=== PATIENT | female | born 1950 | race Caucasian/White ===

== ENCOUNTER 2016-09-08 05:31 | Outpatient (CLI) | payer MEDICARE ==
[~2016-09-08] VITALS: Ht 157.5 cm; Wt 65.8 kg
[2016-09-08] MEDS ORDERED: ATOR20TA66 PO (10:51)
[2016-09-08] MEDS ORDERED: OMEG-160 PO (10:51)
[2016-09-08] MEDS ORDERED: ESTR1TAB24 PO (10:51)
[2016-09-08] MEDS ORDERED: UBID100C44 PO (10:51)
[2016-09-08] MEDS ORDERED: ASPI-586 PO (10:51)
[2016-09-10] MEDS ORDERED: HYDR-3812 PO (14:33)
== END 2016-09-08 10:58 ==
LOC: PREOP 05:31
PROVIDERS: ATTEND Surgery
DX: Z01.818 Encounter for other preprocedural examination (principal); N63 Unspecified lump in breast

== ENCOUNTER 2016-09-10 11:42 | Day surgery (SDC) | payer MEDICARE, OTHER ==
[~2016-09-10 11:42] MED LIST: ASPI-586 PO; ATOR20TA66 PO; ESTR1TAB24 PO; OMEG-160 PO; UBID100C44 PO
[2016-09-10] MEDS ORDERED: ceFAZolin 1,000 MG (ANCEF) VIAL ONE (12:27)
[2016-09-10] MEDS ORDERED: NS (IVPB) 50 ML ONE (12:27)
[2016-09-10] MEDS ORDERED: LACTATED RINGERS 1,000 ML IV PRN (12:55)
[2016-09-10] MEDS ORDERED: ceFAZolin 1 GM/NS 50 ML IVPB IV ONE ×2 (13:00)
[2016-09-10] MEDS ORDERED: BUP/EPI 0.25% 1:200,000 (MARCAINE) 10 ML VIAL IJ ONE (13:36)
[2016-09-10] MEDS ORDERED: fentaNYL INJECTION 100 MCG/2 ML AMP ONE (13:51)
[2016-09-10] MEDS ORDERED: MIDAZOLAM 2 MG/2 ML (VERSED) VIAL ONE (13:51)
[2016-09-10] MEDS ORDERED: proPOfol 200 MG/20 ML (DIPRIVAN) VIAL IV ONE (13:51)
[2016-09-10] MEDS ORDERED: SEVOFLURANE (ULTANE) 15 ML INHAL SOLN ONE ×3 (14:21→14:35)
[2016-09-10] MEDS ORDERED: ONDANSETRON 4 MG/2 ML (SDV) Z0FRAN ONE (14:21)
[2016-09-10] MEDS ORDERED: GLYCOPYRROLATE 0.2 MG/ML (ROBINUL) 2 ML VIAL ONE (14:24)
[2016-09-10] MEDS ORDERED: HYDR-3812 PO (14:33)
[2016-09-10] MEDS: morphine INJ 10 MG/ML 1ML (SYR OR VIAL) IVP PRN ×2 (15:00→15:10)
[2016-09-10] MEDS ORDERED: ONDANSETRON 4 MG/2 ML (SDV) Z0FRAN IVP PRN (15:00)
== END 2016-09-10 16:43 | disposition home or self-care (01) ==
DX: D24.2 Benign neoplasm of left breast (principal); Z11.2 Encounter for screening for other bacterial diseases; E78.5 Hyperlipidemia, unspecified; Z79.899 Other long term (current) drug therapy; Z79.82 Long term (current) use of aspirin

== ENCOUNTER → 2016-10-17 | Outpatient (CLI) | payer MEDICARE, OTHER ==
[~2016-10-17] MED LIST changes: +GADOBUTROL 7.5 MMOL/7.5 ML (GADAVIST) VIAL IV ONE; +HYDR-3812 PO
[2016-10-17 09:52] LABS: BLOOD UREA NITROGEN 8 MG/DL (7-18); BUN/CREATININE RATIO 11; CREATININE SERUM 0.71 MG/DL (0.60-1.30); GFR ESTIMATED > 60
== END ==
LOC: RAD 09:08
PROVIDERS: ATTEND Surgery
DX: R92.2 Inconclusive mammogram (principal)
CPT/HCPCS: 36415; 77059; 82565; 84520

== ENCOUNTER → 2019-04-04 | Outpatient (CLI) | payer MEDICARE, OTHER ==
[~2019-04-04] VITALS: Ht 157 cm; Wt 66.0 kg
[~2019-04-04] MED LIST changes: +ACHD5005 PO; +CATHETER FLUSH 10 ML SYR IV PRN; -GADOBUTROL 7.5 MMOL/7.5 ML (GADAVIST) VIAL IV ONE; -HYDR-3812 PO
[2019-04-04 09:23] VITALS: BP 194/83
--- NOTE | 2019-04-04 17:11 | STRESS TEST ---
DATE OF SERVICE: 04/04/2019 EXERCISE MYOVIEW STRESS TEST REFERRING PHYSICIAN: Moreno Del Toro MD and Reno Garcia DO Baseline heart rate is 59, baseline blood pressure 133/76. Baseline EKG is sinus rhythm with no ischemic changes. In summary, the patient was injected with 10.1 mCi of technetium-99 Myoview and the resting images were obtained. Then, the patient started exercising with a baseline heart rate, blood pressure and EKG mentioned above. The patient was able to exercise for a total of 4 minutes 15 seconds on standard Arvin protocol. With peak exercise level, blood pressure was 194/83. EKG was showing nondiagnostic changes. During recovery, heart rate and blood pressure returned to baseline. EKG returned to baseline. The resting and stress images were reviewed and compared in the short axis, horizontal long axis, and vertical long axis views. Review of the images showed breast attenuation with mild decreased uptake involving the mid to apical anterior wall and anterolateral wall. SSS is 6, SDS 4, TID value 1.02. On the gated images, the left ventricle appeared to be normal size with normal contractility. Calculated ejection fraction 70%. CONCLUSION: 1. Fair exercise tolerance, a total of 4 minutes 15 seconds on standard Arvin protocol, total of 6 METs achieving 95% of maximum expected heart rate. 2. Nondiagnostic EKG changes with exercise with [address] depression in II, III, aVF, V4, V5 and V3, returned to baseline during recovery. 3. Hypertensive response to exercise with peak blood pressure 194/83 returned to baseline during recovery. 4. Breast attenuation with mild ischemia involving the mid to apical anterior wall and anterolateral wall. 5. Normal left ventricular size with normal contractility. Calculated ejection fraction 70%. Job ID: [id number] DocumentID: [id number] Dictated Date: 04/04/2019 12:37:51 [employer] Date: 04/04/2019 17:10:39 Dictated By: DAVID GREENFIELD MD
== END ==
LOC: CARD 07:25
PROVIDERS: ATTEND Physician Assistant
DX: I08.1 Rheumatic disorders of both mitral and tricuspid valves (principal); I65.29 Occlusion and stenosis of unspecified carotid artery; E78.5 Hyperlipidemia, unspecified; Z82.49 Family history of ischemic heart disease and other diseases of the circulatory system
CPT/HCPCS: 78452; 93017; 93306

== ENCOUNTER 2019-04-06 07:39 | Day surgery (SDC) | payer MEDICARE, OTHER ==
[~2019-04-06] VITALS: Ht 155 cm; Wt 67.0 kg
[2019-04-06] VITALS (11 sets, daily range): BP systolic 148–167; BP diastolic 77–95
[~2019-04-06 07:39] MED LIST changes: -CATHETER FLUSH 10 ML SYR IV PRN
[2019-04-06] MEDS ORDERED: HEParin 1000 UNIT/ML (10ML VIAL) FOR BOLUS ONE (07:41)
[2019-04-06] MEDS ORDERED: NS IV 1000 ML 3,000 ML ONE (07:41)
[2019-04-06] MEDS ORDERED: LIDOCAINE 1% INJ 20 ML 20 ML VIAL ONE (07:41)
[2019-04-06] MEDS ORDERED: NS IV 1000 ML 1,000 ML IV SCH ×2 (07:45→10:30)
[2019-04-06 08:07] LABS: HEMOGLOBIN 13.6 G/DL (11.5-16.0); MEAN PLATELET VOLUME 9.6 FL (7.4-10.4); RED CELL DISTRIBUTION WIDTH 13.7 % (10.0-14.5); WHITE BLOOD COUNT 6.7 10^3/uL (4.3-11.0)
[2019-04-06 08:08] LABS: BILIRUBIN,URINE NEGATIVE (NEGATIVE); CLARITY,URINE CLEAR; COLOR,URINE YELLOW; GLUCOSE, URINE (UA) NEGATIVE (NEGATIVE); KETONES,URINE NEGATIVE (NEGATIVE); LEUKOCYTE ESTERASE ,URINE NEGATIVE (NEGATIVE); NITRITE,URINE NEGATIVE (NEGATIVE); PROTEIN,URINE NEGATIVE (NEGATIVE)
[2019-04-06 08:17] LABS: BACTERIA,URINE MODERATE /HPF; RBC,URINE 0-2 /HPF; WBC,URINE RARE /HPF
[2019-04-06 08:24] LABS: PROTHROMBIN TIME PATIENT 13.3 SEC (12.2-14.7)
[2019-04-06 08:29] LABS: ALANINE AMINOTRANSFERASE 13 U/L (0-55); ALBUMIN 4.2 GM/DL (3.2-4.5); ALKALINE PHOSPHATASE 118 U/L (40-136); BILIRUBIN,TOTAL 0.6 MG/DL (0.1-1.0); BUN/CREATININE RATIO 16; CALCIUM 9.6 MG/DL (8.5-10.1); CARBON DIOXIDE 26 MMOL/L (21-32); CHLORIDE 105 MMOL/L (98-107); CHOLESTEROL 204 MG/DL (< 200); GFR ESTIMATED > 60; GLUCOSE 87 MG/DL (70-105); HDL CHOLESTEROL 71 MG/DL (40-60); POTASSIUM 3.6 MMOL/L (3.6-5.0); SODIUM 140 MMOL/L (135-145); TOTAL PROTEIN 7.6 GM/DL (6.4-8.2); TRIGLYCERIDES 113 MG/DL (<150); VLDL CHOLESTEROL 23 MG/DL (5-40)
--- NOTE | 2019-04-06 08:31 | Diagnostic Imaging Report ---
INDICATION: Coronary artery disease. TECHNIQUE: A PA chest was obtained at 8:16 AM. FINDINGS: The heart and mediastinal silhouette are normal in appearance. The lungs are clear. There is no pneumothorax or pleural fluid. There are surgical clips over the right upper chest. IMPRESSION: No acute process in the chest. Dictated by: Dictated on workstation # [id number]
--- NOTE | 2019-04-06 09:19 | NUR ---
SPOKE WITH THE PT (SHE HAD HER MED BOTTLES) TO COMPLETE THE MED REC. PT WAS ABLE TO TELL ME HOW/WHEN SHE TAKES EACH MED. THE FOLLOWING ARE FILL DATES: 01-24-2019 ESTRACE #90/90DS 02-18-2019 ATORVASTATIN #90/90DS OTC MEDS: OMEGA 3 CO Q 10 ASPIRIN
[2019-04-06] MEDS ORDERED: fentaNYL INJECTION 100 MCG/2 ML AMP ONE (09:46)
[2019-04-06] MEDS ORDERED: MIDAZOLAM 5 MG/5 ML (VERSED) VIAL ONE (09:46)
[2019-04-06] MEDS ORDERED: PATIENT MAY USE OWN MEDS, ALL PO SCH (10:30)
--- NOTE | 2019-04-06 10:30 | Cardiac Procedure Note-CS/ASA ---
Pre-Procedure Note Pre-Op Procedure Note H&P Reviewed The H&P was reviewed, patient examined and no changes noted. Date H&P Reviewed: Apr 06, 2019 Time H&P Reviewed: 10:29 Conscious Sedation Pre-Proced Time 10:29 ASA Score 3 For ASA 3 and 4: Consider anesthesia and medical clearance. Also, for patients with a history of failed moderate sedation consider anesthesia. Airway Lungs Heart ASA score ASA 1: a normal healthy patient ASA 2: a patient with a mild systemic disease (mid diabetes, controlled hypertension, obesity x ASA 3: a patient with a severe systemic disease that limits activity (angina, COPD, prior Myocardial infarction) ASA 4: a patient with an incapacitating disease that is a constant threat to life (CHF, renal failure) ASA 5: a moribund patient not expected to survive 24 hrs. (ruptured aneurysm) ASA 6: a declared brain- patient whose organs are being harvested. For emergent operations, add the letter E after the classification Mallampati Classification Grade 3 Sedation Plan Analgesia, Amnesia, Plan communicated to team members, Discussed options with patient/fam, Discussed risks with patient/fam The patient is an appropriate candidate to undergo the planned procedure, sedation, and anesthesia. The patient immediately re-assessed prior to indication. DAVID GREENFIELD MD Apr 06, 2019 10:30
--- NOTE | 2019-04-06 10:32 | Discharge Inst-Post CATH ---
Discharge Inst-CATH/EP Problems Reviewed?: Yes Post Cardiac Cath/EP D/C Inst Follow Up/Plan Appointment with Dr. Cormier's office in 2-4 weeks <b>CARDIAC CATH/EP PROCEDURE DISCHARGE INSTRUCTIONS</b> ACTIVITY * Go Home directly and rest. * Limit activity of the leg (or wrist if it was used) for 7 days including aerobics, swimming, jogging, bicycling, etc. * Restrict stair-climbing for 7 days if possible, if not, climb up with your non-cath leg, then bring together on the same step. * Avoid lifting, pushing, pulling or excessive movement of the affected extremity for 7 days. * Customary sexual activity may be resumed after 2 days-use caution not to use a position that strains or causes pain to the affected extremity. * No driving for 24 hours. * NO SMOKING. * Avoid straining for bowel movements for 7 days. * Gentle walking on level ground is allowed. * Returning to work will depend on the type of procedure and the results. Your doctor will discuss this with you. CALL YOUR DOCTOR FOR ANY OF THE FOLLOWING: *If bleeding from the puncture site occurs- Apply gentle pressure to site with clean cloth and call your doctor or EMS. * If a knot or lump forms under the skin, increases in size, or causes pain. * If bruising appears to be worsening or moving further down your leg instead of disappearing. * Temperature above 101 F. CARE OF YOUR GROIN INCISION; * Bruising or purple discoloration of the skin near the puncture site is common. * You may shower only, no bathtub bathing for 5 days. Be careful to avoid slipping as your leg may feel stiff. * If a closure device was used on your femoral artery, please see the attached guide regarding care of the device and your leg. * Leave dressing on FOR 24 hours. CARE OF YOUR WRIST INCISION; * Bruising or purple discoloration of the skin near the puncture site is common. * You may shower. * DO NOT submerge wrist. * Leave dressing on FOR 24 hours. DAVID CORMIER MD Apr 06, 2019 10:32
--- NOTE | 2019-04-06 10:37 | Cardiac Cath Report ---
Cardiac Cath Report Physician (s)/Printing Table Hand (s) Physician DAVID GREENFIELD MD Pre-Procedure Diagnosis Pre-Procedure Diagnosis: chest pain, coronary artery disease Post-Procedure Note Procedure Start Date: Apr 06, 2019 Name of Procedure: left heart catheterization Findings/Procedure Note PROCEDURE NOTE: 68-year-old lady with history of chest pain, had abnormal stress test scheduled for cardiac catheter After explaining the procedure to the patient, all pros and cons were explained, all questions were answered. The patient signed the consent and then she was placed on the cardiac catheterization laboratory. Groin was prepped SL fashion local anesthesia was used. Sheath placed in the Rt femoral artery. Adam right and left catheter were used to access the coronary system. Pigtail was used to access the left ventricular cavity. Left ventriculogram not done At the end of the procedure the sheath was removed. Closure device FINDINGS: Hemodynamics LV 160/16, end diastolic pressure 16 Aorta 158/70 mean of 103 ANATOMY: Left Main has no obstructive disease Left Anterior Descending has mild disease Left Circumflex has nonobstructive disease Right Coronory Artery has no obstructive disease LV Gram was not done, pressure was measured CONCLUSION: 1. Mild coronary artery disease nonobstructive disease 2. Normal LVEDP DISCUSSION AND RECOMMENDATION: medical therapy Anesthesia Type: Conscious Sedation Estimated blood loss (mL): 25 ml Contrast Amount: 54 ml Total Radiation Dose: 76 ml Post-Procedure Diagnosis Post-operative diagnosis: CP CAD HTN HLD DAVID GREENFIELD MD Apr 06, 2019 10:37
== END 2019-04-06 15:10 | disposition home or self-care (01) ==
LOC: CATH 07:39
PROVIDERS: ATTEND Internal Medicine Cardiovascular Disease
DX: I25.10 Atherosclerotic heart disease of native coronary artery without angina pectoris (principal); I65.29 Occlusion and stenosis of unspecified carotid artery; I10 Essential (primary) hypertension; I49.5 Sick sinus syndrome; I49.3 Ventricular premature depolarization; E78.5 Hyperlipidemia, unspecified; Z79.82 Long term (current) use of aspirin; Z79.899 Other long term (current) drug therapy; Z90.710 Acquired absence of both cervix and uterus; Z83.3 Family history of diabetes mellitus; Z82.3 Family history of stroke; Z82.49 Family history of ischemic heart disease and other diseases of the circulatory system; Z80.9 Family history of malignant neoplasm, unspecified
CPT/HCPCS: 36415; 71045; 80053; 80061; 81000; 85027; 85610; 85730; 87081; 93458

== ENCOUNTER → 2021-07-29 | Outpatient (CLI) | payer MEDICARE, OTHER ==
[~2021-07-29] VITALS: Ht 157.5 cm; Wt 63.6 kg
[~2021-07-29] MED LIST changes: +ACYC-112 PO; +LOSA25TA41 PO
== END ==
LOC: PREOP 05:39
PROVIDERS: ATTEND Specialist
DX: Z01.818 Encounter for other preprocedural examination (principal); H25.11 Age-related nuclear cataract, right eye

== ENCOUNTER 2021-08-05 09:15 | Day surgery (SDC) | payer MEDICARE, OTHER ==
[~2021-08-05] VITALS: Ht 157 cm; Wt 63.6 kg
[2021-08-05] MEDS ORDERED: MIDAZOLAM 2 MG/2 ML (VERSED) VIAL ONE (09:32)
[2021-08-05] MEDS: TETRACAINE 0.5% OPHTH SOLN 4 ML BTL (SINGLE DOSE ONLY) OU PRN ×4 (09:57→10:13)
[2021-08-05 09:58] VITALS: BP 170/86
[2021-08-05] MEDS ORDERED: POVIDONE (BETADINE) OPHTH SOLN 5% 30 ML OP ONE (10:00)
[2021-08-05] MEDS ORDERED: TIMOLOL MALEATE 0.5% 5 ML (TIMOPTIC) BTL OU PRN (10:00)
[2021-08-05] MEDS ORDERED: LIDOCAINE PF 1% 2 ML VIAL IR PRN (10:00)
[2021-08-05] MEDS ORDERED: MOXIFLOXACIN OPHTH SOLN 5 MG/ML 0.3 ML SYRINGE OP ONE (10:00)
[2021-08-05] MEDS: PHENYLEPHRINE 10% OPHTH (NEO-SYN) 5 ML BTL OU SCH ×3 (10:03→10:13)
[2021-08-05] MEDS: TROPICAMIDE 1% OPH SOLN (MYDRIACYL) 15 ML BTL OP SCH ×3 (10:03→10:13)
--- NOTE | 2021-08-05 10:22 | Ophthalmologist Pre-Op Note ---
Pre-Operative Progress Note H&P Reviewed The H&P was reviewed, patient examined and no changes noted. Date H&P Reviewed: August 05, 2021 Time H&P Reviewed: 10:22 Pre-Op Dx Cataract, Right Eye MELISA TARIQ MD August 05, 2021 10:22
--- NOTE | 2021-08-05 10:45 | Ophthalmology Operative Report ---
Cataract removal/placement IOL PREOPERATIVE DIAGNOSIS: Cataract Right Eye POSTOPERATIVE DIAGNOSIS: Cataract Right Eye PROCEDURE: Cataract removal and placement of posterior chamber implant, right eye SURGEON: Luis Tariq ANESTHESIA: Topical with sedation COMPLICATIONS: None ESTIMATED BLOOD LOSS: Minimal DESCRIPTION OF PROCEDURE: After proper informed consent was obtained, the patient, a 70 female, was taken to the Operating Room and the right eye was anesthetized with tetracaine. The right eye was then prepped and draped in the usual manner. A wire lid speculum was placed. A paracentesis was made at the left hand position. Preservative free lidocaine was injected into the anterior chamber followed by viscoelastic. A clear corneal incision was made in the temporal position. A capsulorrhexis was preformed and the central nuclear and cortical material were removed. The posterior capsule was polished and Asnjay 16.0 AU00T0 IOL was placed into the capsular bag. The residual viscoelastic was aspirated and balanced saline solution was injected into the anterior chamber. Moxifloxacin was injected into the anterior chamber. The wound was checked and found to be water tight. The patient tolerated the procedure well without complications. LUIS TARIQ MD August 05, 2021 10:44
[2021-08-05 10:50] VITALS: BP 168/55
--- NOTE | 2021-08-05 13:41 | Anesthesia-General Post-Op ---
MAC Patient Condition Mental Status/LOC: Same as Preop Cardiovascular: Satisfactory Nausea/Vomiting: Absent Respiratory: Satisfactory Pain: Controlled Complications: Absent Post Op Complications Complications None Follow Up Care/Instructions Patient Instructions None needed. Anesthesiology Discharge Order Discharge Order Patient is doing well, no complaints, stable vital signs, no apparent adverse anesthesia problems. No complications reported per nursing. VIKKI WILLIS CRNA August 05, 2021 13:41
== END 2021-08-05 10:52 | disposition home or self-care (01) ==
LOC: SDC 09:15
PROVIDERS: ATTEND Specialist
DX: H25.9 Unspecified age-related cataract (principal); Z79.82 Long term (current) use of aspirin
CPT/HCPCS: 66984; V2632